=== PATIENT | female | born 2000 | race Caucasian/White ===

== ENCOUNTER 2020-03-09 14:23 | Outpatient (REF) | payer OTHER, SELFPAY | END 2020-03-09 14:24 | disposition home or self-care (01) | LOC: HO.LAB 14:23 | PROVIDERS: Visit Provider Internal Medicine | DX: Z20.822 Contact with and (suspected) exposure to COVID-19 (principal) | CPT/HCPCS: 36415; C9803; U0003 ==

== ENCOUNTER 2021-10-18 07:04 | Day surgery (SDC) | payer OTHER, SELFPAY ==
[2021-10-12 11:06] VITALS: BMI 24.4
[2021-10-18 07:11] VITALS: BP 143/98; PULSE 154; RESP 18; TEMP 36.1; O2SAT 97
[2021-10-18] MEDS: Lactated Ringers 1,000 ML 50 ML IVCONT (07:43)
[2021-10-18 07:45] VITALS: BP 132/78; PULSE 106; RESP 18; TEMP 36.1; O2SAT 99
[2021-10-18 07:58] LABS: UPreg QC Valid YES; Urine Pregnancy NEGATIVE (NEGATIVE)
--- NOTE | 2021-10-18 07:58 | HO.ANESPROP2 ---
[facility] Past Medical History Medical History (Updated 10/18/21 @ 07:55 by Chiquita Lai RN) Abdominal pain Surgical absence of teeth Family History Family history of problems with anesthesia: No Surgical History Surgical History (Updated 10/12/21 @ 10:56 by Eri Marion RN) No pertinent past surgical history History of Problems with Anesthesia: No Social History Social History (Updated 10/12/21 @ 11:03 by Eri Marion RN) Patient Tobacco Use Status: Never used Tobacco Use of substances other than those prescribed or required for medical reasons: No Are you DNR?: No Advance Directives: No Advance Directives Information Provided: Yes Recently lost weight without trying: No Patient : No Meds Allergies Allergy/AdvReac Type Severity Reaction Status Date / Time No Known Allergies Allergy Verified 10/12/21 10:56 Active Medications: Current Medications Lactated Ringer's (Lr) 1,000 mls @ 50 mls/hr IVCONT .Q20H CEFERINO Last Admin: 10/18/21 07:43 Dose: 50 mls/hr Home Medications Medication Instructions Recorded Confirmed Last Taken Type levonorgestrel-ethinyl estradiol 1 tab PO DAILY 10/12/21 10/12/21 Unknown History 0.1 mg-20 mcg tablet (Sronyx) omeprazole 20 mg capsule,delayed 20 mg PO DAILY 10/12/21 10/12/21 Unknown History release Exam Exam Date and Time: October 18, 2021 0758 Height,Weight and Vital Signs: Height 5 ft Weight 56.699 kg Last Vital Signs Temp 97 F 10/18/21 07:45 Pulse 106 H 10/18/21 07:45 Resp 18 10/18/21 07:45 BP 132/78 10/18/21 07:45 Pulse Ox 99 10/18/21 07:45 O2 Del Method 10/18/21 07:45 Airway Mallampati Class: II TM Dist: >3cm Neck ROM: Full Assessment and Plan Assessment Anesthesia Assessment: Anesthesia Plan Discussed and Chart Reviewed Final Anesthetic Review Family History of Problems with Anesthesia: No History of Problems with Anesthesia: No NPO: Yes ASA Class: II Final Preanesthetic Review: No Changes in Pt Med Stat, Meds/Allgs Chart Reviewed, Consent Obtained/Reviewed and Anes Risks/Benef Reviewed Patient Risk: Low Procedure Risk: Low Anesthetic Plan Anesthetic Plan: MAC: Disposition: Standard PACU
--- NOTE | 2021-10-18 08:10 | MHC.SHP ---
Pre-Procedural Eval Section A Date of Service: 10/18/21 Section B Chief Complaint: reflux Details of Present Illness: see H&P no changes Relevant Family History (Specify if Yes): No Relevant Social History: None Present Medications: None Medical History: No relevant PMH History of Previous Operations: No relevant previous surgery Allergies: Allergies Allergy/AdvReac Type Severity Reaction Status Date / Time No Known Allergies Allergy Verified 10/12/21 10:56 Review of Systems Sugical H&P ROS: Negative: Constitution, Cardiovascular, Respiratory, Neurological, Psychiatric, Hem-Onc, Allergic/Immunologic, Gastrointestinal, Genitourinary, Musculoskeletal, Integumentary, Endocrine and Eyes/Ears/Nose/Throat Exam Surgical H&P Exam: Normal: HEENT, Normal: Heart, Normal: Lungs, Normal: Extremities, Normal: Abdomen, Normal: Skin and Normal: Neurological Plan Diagnosis/Plan: Unchanged I have reviewed the history and physical and performed a pertinent physical examination on my patient. No changes have occurred unless specified.
--- NOTE | 2021-10-18 08:31 | PM.OP ---
Brief Operative Note Date of Service: 10/18/21 Pre-op diagnosis: GERD Post-op diagnosis: same Procedure: EGD Surgeon: Maxi Greene Anesthesia: MAC Was an Tool Maker Apprentice used for this Procedure?: No Estimated blood loss (mL): 2 Pathology: other (bxs antrum,egj, esophagus 25 cm)
[2021-10-18 08:33] VITALS: BP 100/40; PULSE 87; RESP 16; TEMP 36.9; O2SAT 96
[2021-10-18 08:48] VITALS: BP 107/66; PULSE 102; RESP 16; O2SAT 95
[2021-10-18 08:57] VITALS: BP 114/62; PULSE 94; RESP 16; TEMP 36.7; O2SAT 97
--- NOTE | 2021-10-18 09:51 | PC.NURSE ---
PATIENT FEELING DIZZY AFTER HER PROCEDURE. PATIENT UP TO BATHROOM WITH SBA. PATIENT GIVEN MUFFIN AND JUICE. VSS. 121/78, HR76, 98% RA, R 16. DR. BOYKIN NOTIFIED AND PATIENT REACCESSED. PATIENT FEELING BETTER AND DISCHARGED HOME WITH HER MOTHER.
--- NOTE | 2021-10-19 11:29 | OP_ITS ---
SURGEON: Maxi Greene MD INDICATIONS: Gastroesophageal reflux disease. PREOPERATIVE DIAGNOSIS: POSTOPERATIVE DIAGNOSIS: PROCEDURE PERFORMED: Upper endoscopy with biopsy. ESTIMATED BLOOD LOSS: COMPLICATIONS: ANESTHESIA: ASSISTANTS: SPECIMENS: MEDICATIONS: Monitored anesthesia care. DESCRIPTION OF PROCEDURE: History and physical performed. The risks and benefits of the procedure were explained to the patient. Informed consent was obtained. The patient was placed in the left lateral decubitus position. The Olympus video gastroscope was introduced into the esophagus, stomach, and duodenum. Examination was performed. The scope was removed. She tolerated the procedure well and was taken to recovery area in stable condition. FINDINGS: Esophagus: The esophagus was within normal limits. There was no esophagitis. The EG junction was biopsied at about 25 cm from the incisors, was a flat 5 mm whitish lesion, consistent with a possible squamous papilloma. This was removed with biopsy forceps. Stomach: The stomach showed no evidence of masses, ulcers, or polyps. Antral biopsies were obtained to rule out Helicobacter pylori. Duodenum: The bulb and second portion were normal. IMPRESSION: Gastroesophageal reflux disease. RECOMMENDATIONS: 1. Follow up the biopsy results. 2. Continue proton-pump inhibitor . MD BEATRICE Ribeiro/FELICE / [id number]
== END 2021-10-18 09:53 | disposition home or self-care (01) ==
PROVIDERS: Anesthesiology; PCP Nurse Practitioner Family; Visit Provider Internal Medicine Gastroenterology
PROC: 0DJ08ZZ Inspection of Upper Intestinal Tract, Via Natural or Artificial Opening Endoscopic (ICD-10-PCS; CPT 43235; principal; 2021-10-18 08:10)
DX: K21.9 Gastro-esophageal reflux disease without esophagitis (principal); K29.50 Unspecified chronic gastritis without bleeding; D13.0 Benign neoplasm of esophagus; Z79.899 Other long term (current) drug therapy
CPT/HCPCS: 43239; 81025; 88305; 88342; J2250